=== PATIENT | female | born 1955 | race Caucasian/White ===

== ENCOUNTER 2018-09-26 15:50 | Inpatient (IN) ==
[2018-09-26] MEDS ORDERED: ONDANSETRON 4 MG/2 ML VIAL IV STA (20:56)
[2018-09-26] MEDS ORDERED: SODIUM CHLORIDE 0.9% 1,000 ML IV STA (20:56)
[2018-09-26] MEDS ORDERED: MORPHINE 4 MG/1 ML VIAL IV STA (20:56)
[2018-09-26] MEDS ORDERED: CEFTAROLINE 600 MG in SODIUM CHLORIDE 0.9% 100 ML IV STA (20:56)
[2018-09-26 21:15] LABS: Basophils # 0.1 10*3/uL (0.0-0.2); Basophils % 0.3 % (0.0-0.8); Eosinophils # 0.2 10*3/uL (0.0-0.87); Eosinophils % 0.9 % (0.00-10.9); Hematocrit 34.5 VOL% (35.7-47.0); Hemoglobin 10.7 GM/DL (12.0-16.0); Immature Granulocytes % 2.8 %; Immature Granulocytes Absolute 0.59 #; Lymphocytes # 2.4 10*3/uL (1.4-4.0); Lymphocytes % 11.4 % (21.3-54.2); Mean Corpuscular Hemoglobin 29 PG (27-34); Mean Corpuscular Volume 92.5 FL (87-102); Mean Platelet Volume 9.7 FL (9.6-12.0); Monocytes # 1.6 10*3/uL (0.11-0.8); Monocytes % 7.6 % (1.7-12.7); Neutrophils # 16.1 10*3/uL (1.4-7.4); Platelet Count 443 T/CUMM (130-400); Red Blood Count 3.73 MC/CUMM (3.8-5.5); Red Cell Distribution Width 13.2 % (9.3-17.3); White Blood Count 20.9 T/CUMM (4-12)
[2018-09-26 21:20] LABS: Apearance,Urine CLEAR (Clear); Bilirubin,Urine Negative (Negative); Blood Urea Nitrogen 16 MG/DL (7-18); Blood, Urine Negative (Negative); Calcium 8.6 MG/DL (8.5-10.1); Glucose 100 MG/DL (74-106); Glucose,Urine (UA) Negative (Negative); Ketones,Urine Negative (Negative); Mucus,Urine Occasional /LPF (Occasional); Nitrite,Urine Negative (Negative); Osmolality,Calculated 268.2 MOS/KG (273-304); Potassium 3.5 MMOL/L (3.5-5.1); Protein,Urine Negative; RBC,Urine <1 /HPF (0-4); Sodium 134 MMOL/L (136-145); Squamous Epithelial Cell,Urine Occasional /HPF (0-10); Urine Color Amber (Yellow); Urine Specific Gravity 1.021 (1.001-1.035); WBC,Urine 4 /HPF (0-6)
[2018-09-26 22:08] LABS: Band Neutrophils 4 % (0-10); Eosinophils 1 % (0-10); Lymphocytes 11 % (20-55); Platelet Estimate Increased; Segmented Neutrophils 80 % (50-85); Total Cells Counted 100
[2018-09-26] MEDS ORDERED: ACETAMINOPHEN 325 MG TABLET PO PRN (23:11)
[2018-09-26] MEDS ORDERED: PROMETHAZINE 25 MG/1 ML VIAL IM PRN (23:11)
[2018-09-26] MEDS ORDERED: ONDANSETRON 4 MG/2 ML VIAL IV PRN (23:11)
[2018-09-26] MEDS: HYDROmorphone 2 MG/1 ML VIAL IV PRN (23:47)
[2018-09-26 23:49] LABS: PT Patient Result 10.4 SECS; Partial Thromboplastin Time 25.8 SECS (0-40)
[2018-09-27] MEDS: SODIUM CHLORIDE 0.9% 1,000 ML IV SCH ×4 (00:18→19:24)
[2018-09-27] MEDS: PIPERACILLIN/TAZOBACTAM 3,375 MG in SODIUM CHLORIDE 0.9% 100 ML IV SCH ×4 (00:20→23:07)
[2018-09-27] MEDS: HYDROmorphone 2 MG/1 ML VIAL IV PRN ×6 (06:09→19:47)
[2018-09-27] MEDS: PANTOPRAZOLE 40 MG TABLET PO SCH (08:31)
[2018-09-27] MEDS ORDERED: GLUCAGON 1 MG VIAL IM PRN (08:32)
[2018-09-27] MEDS ORDERED: DEXTROSE 50% 25 GM/50 ML SYRINGE IV PRN (08:32)
[2018-09-27] MEDS ORDERED: DEXTROSE 50% 25 GM/50 ML VIAL IV ONE (10:56)
[2018-09-27] MEDS ORDERED: BUPIVACAINE 0.5% 50 ML VIAL ONE (11:02)
[2018-09-27] MEDS ORDERED: LIDOCAINE 1%/EPI INJ 20 ML VIAL ONE (11:02)
[2018-09-27] MEDS ORDERED: DEXTROSE 50% 25 GM/50 ML SYRINGE IV ONE (11:03)
[2018-09-27] MEDS ORDERED: HYDROmorphone 2 MG/1 ML VIAL ONE (12:04)
[2018-09-27] MEDS ORDERED: MEPERIDINE 25 MG/1 ML VIAL ONE (12:04)
[2018-09-27] MEDS ORDERED: ONDANSETRON 4 MG/2 ML VIAL ONE (12:04)
[2018-09-27] MEDS ORDERED: ONDANSETRON 4 MG/2 ML VIAL IV PRN (12:05)
[2018-09-27] MEDS ORDERED: PROMETHAZINE INJ 25 MG in SODIUM CHLORIDE 0.9% 50 ML IV PRN (12:05)
[2018-09-27] MEDS ORDERED: MEPERIDINE 25 MG/1 ML VIAL IV PRN (12:05)
[2018-09-27] MEDS ORDERED: MIDAZOLAM 2 MG/2 ML VIAL ONE (12:06)
[2018-09-27] MEDS ORDERED: fentaNYL 100 MCG/2 ML VIAL ONE (12:07)
[2018-09-27] MEDS ORDERED: PROPOFOL 200 MG/20 ML VIAL IV ONE (12:07)
[2018-09-27] MEDS ORDERED: KETAMINE 500 MG/10 ML VIAL ONE (12:08)
[2018-09-27] MEDS ORDERED: SODIUM CHLORIDE 0.9% 100 ML IV ONE (12:08)
[2018-09-27] MEDS: INSULIN LISPRO 100 UNIT/ML SUBCUT SCH ×3 (13:00→23:29)
[2018-09-27] MEDS: DULoxetine 30 MG CAPSULE PO SCH (20:50)
[2018-09-28] MEDS: SODIUM CHLORIDE 0.9% 1,000 ML IV SCH ×3 (02:14→14:26)
[2018-09-28 05:02] LABS: Basophils # 0.1 10*3/uL (0.0-0.2); Basophils % 0.3 % (0.0-0.8); Eosinophils # 0.3 10*3/uL (0.0-0.87); Eosinophils % 1.9 % (0.00-10.9); Hematocrit 27.9 VOL% (35.7-47.0); Hemoglobin 8.7 GM/DL (12.0-16.0); Immature Granulocytes % 5.6 %; Immature Granulocytes Absolute 0.92 #; Lymphocytes % 11.8 % (21.3-54.2); Mean Corpuscular HGB Conc 31.2 GM/DL (32-36); Mean Corpuscular Hemoglobin 29 PG (27-34); Mean Corpuscular Volume 92.4 FL (87-102); Mean Platelet Volume 9.4 FL (9.6-12.0); Monocytes # 1.3 10*3/uL (0.11-0.8); Monocytes % 7.8 % (1.7-12.7); Neutrophils % 72.6 % (38.7-73.9); Platelet Count 380 T/CUMM (130-400); Red Blood Count 3.02 MC/CUMM (3.8-5.5); Red Cell Distribution Width 13.2 % (9.3-17.3); White Blood Count 16.5 T/CUMM (4-12)
[2018-09-28 05:25] LABS: Band Neutrophils 6 % (0-10); Eosinophils 1 % (0-10); Lymphocytes 15 % (20-55); Myelocytes 1 %; Segmented Neutrophils 73 % (50-85); Total Cells Counted 100
[2018-09-28 05:26] LABS: Hypochromasia 1+; Platelet Estimate Adequate
[2018-09-28 05:36] LABS: Albumin 1.6 G/DL (3.4-5.0); Bilirubin,Total 1.6 MG/DL (0.2-1.0); Osmolality,Calculated 269.4 MOS/KG (273-304); Total Protein 5.8 G/DL (6.4-8.3)
[2018-09-28] MEDS: INSULIN LISPRO 100 UNIT/ML SUBCUT SCH ×4 (05:37→23:43)
[2018-09-28] MEDS: PIPERACILLIN/TAZOBACTAM 3,375 MG in SODIUM CHLORIDE 0.9% 100 ML IV SCH ×3 (06:03→22:43)
[2018-09-28] MEDS: PANTOPRAZOLE 40 MG TABLET PO SCH (08:32)
[2018-09-28] MEDS: HYDROmorphone 2 MG/1 ML VIAL IV PRN (11:05)
[2018-09-28] MEDS: SODIUM HYPOCHLORITE 0.25% IRRIG 473 ML BOTTLE TOP SCH (11:41)
[2018-09-28] MEDS: CHLORHEXIDINE 4% SOLN 118 ML BOTTLE TOP SCH (11:42)
[2018-09-28] MEDS ORDERED: HYDROmorphone 2 MG/1 ML VIAL IV PRN ×2 (12:31)
[2018-09-28] MEDS: DULoxetine 30 MG CAPSULE PO SCH (20:39)
[2018-09-29 05:14] LABS: Basophils % 0.3 % (0.0-0.8); Eosinophils # 0.3 10*3/uL (0.0-0.87); Eosinophils % 2.5 % (0.00-10.9); Hematocrit 30.1 VOL% (35.7-47.0); Hemoglobin 9.3 GM/DL (12.0-16.0); Lymphocytes # 2.4 10*3/uL (1.4-4.0); Lymphocytes % 24.2 % (21.3-54.2); Mean Corpuscular HGB Conc 30.9 GM/DL (32-36); Mean Corpuscular Hemoglobin 28 PG (27-34); Mean Platelet Volume 9.3 FL (9.6-12.0); Monocytes # 0.7 10*3/uL (0.11-0.8); Monocytes % 6.8 % (1.7-12.7); Neutrophils # 6.1 10*3/uL (1.4-7.4); Neutrophils % 61.2 % (38.7-73.9); Platelet Count 455 T/CUMM (130-400); Red Blood Count 3.27 MC/CUMM (3.8-5.5); Red Cell Distribution Width 13.1 % (9.3-17.3)
[2018-09-29 05:39] LABS: Albumin 1.7 G/DL (3.4-5.0); Bilirubin,Total 0.5 MG/DL (0.2-1.0); Calcium 8.6 MG/DL (8.5-10.1); Osmolality,Calculated 270.1 MOS/KG (273-304); Total Protein 6.5 G/DL (6.4-8.3)
[2018-09-29] MEDS: SODIUM CHLORIDE 0.9% 1,000 ML IV SCH (05:40)
[2018-09-29] MEDS: INSULIN LISPRO 100 UNIT/ML SUBCUT SCH ×4 (05:50→23:55)
[2018-09-29] MEDS ORDERED: FAMOTIDINE 20 MG TABLET PO ONE (06:00)
[2018-09-29] MEDS ORDERED: LIDOCAINE 1%/EPI INJ 20 ML VIAL ONE (06:37)
[2018-09-29] MEDS: PIPERACILLIN/TAZOBACTAM 3,375 MG in SODIUM CHLORIDE 0.9% 100 ML IV SCH (07:05)
[2018-09-29] MEDS ORDERED: PROPOFOL 200 MG/20 ML VIAL IV ONE (08:03)
[2018-09-29] MEDS ORDERED: fentaNYL 100 MCG/2 ML VIAL ONE (08:03)
[2018-09-29] MEDS ORDERED: SEVOFLURANE 1 UNIT/15 MINUTE INH ONE (08:03)
[2018-09-29] MEDS ORDERED: MIDAZOLAM 2 MG/2 ML VIAL ONE (08:03)
[2018-09-29] MEDS ORDERED: ONDANSETRON 4 MG/2 ML VIAL ONE (08:04)
[2018-09-29] MEDS ORDERED: PHENYLEPHRINE 1 MG/10 ML SYRINGE IV ONE (08:04)
[2018-09-29] MEDS ORDERED: DEXAMETHASONE 4 MG/1 ML VIAL ONE (08:04)
[2018-09-29] MEDS ORDERED: KETOROLAC 30 MG/1 ML VIAL ONE (08:04)
[2018-09-29] MEDS: SODIUM HYPOCHLORITE 0.25% IRRIG 473 ML BOTTLE TOP SCH (08:20)
[2018-09-29] MEDS: CHLORHEXIDINE 4% SOLN 118 ML BOTTLE TOP SCH (08:21)
[2018-09-29] MEDS: PANTOPRAZOLE 40 MG TABLET PO SCH (08:39)
[2018-09-29] MEDS: NAFCILLIN 2,000 MG in SODIUM CHLORIDE 0.9% 100 ML IV SCH ×2 (15:09→20:12)
[2018-09-29] MEDS: DULoxetine 30 MG CAPSULE PO SCH (20:11)
[2018-09-30] MEDS: NAFCILLIN 2,000 MG in SODIUM CHLORIDE 0.9% 100 ML IV SCH ×4 (02:55→21:16)
[2018-09-30] MEDS: SODIUM CHLORIDE 0.9% 1,000 ML IV SCH ×2 (02:57→05:55)
[2018-09-30] MEDS: INSULIN LISPRO 100 UNIT/ML SUBCUT SCH ×4 (05:54→23:46)
[2018-09-30] MEDS: KETOROLAC 10 MG TABLET PO PRN (06:01)
[2018-09-30] MEDS: PANTOPRAZOLE 40 MG TABLET PO SCH (10:12)
[2018-09-30] MEDS: CHLORHEXIDINE 4% SOLN 118 ML BOTTLE TOP SCH (14:50)
[2018-09-30] MEDS: SODIUM HYPOCHLORITE 0.25% IRRIG 473 ML BOTTLE TOP SCH (14:50)
[2018-09-30] MEDS ORDERED: amLODIPine 10 MG TABLET PO ONE (21:05)
[2018-09-30] MEDS ORDERED: METOPROLOL TARTRATE 50 MG TABLET PO ONE (21:07)
[2018-09-30] MEDS: DULoxetine 30 MG CAPSULE PO SCH (21:17)
[2018-10-01] MEDS: NAFCILLIN 2,000 MG in SODIUM CHLORIDE 0.9% 100 ML IV SCH ×4 (03:48→20:50)
[2018-10-01] MEDS: INSULIN LISPRO 100 UNIT/ML SUBCUT SCH ×3 (06:28→18:35)
[2018-10-01] MEDS: METOPROLOL TARTRATE 100 MG TABLET PO SCH (09:41)
[2018-10-01] MEDS: amLODIPine 10 MG TABLET PO SCH (09:42)
[2018-10-01] MEDS: PANTOPRAZOLE 40 MG TABLET PO SCH (09:42)
[2018-10-01] MEDS: CHLORHEXIDINE 4% SOLN 118 ML BOTTLE TOP SCH (11:10)
[2018-10-01] MEDS: SODIUM HYPOCHLORITE 0.25% IRRIG 473 ML BOTTLE TOP SCH (11:10)
[2018-10-01] MEDS: DULoxetine 30 MG CAPSULE PO SCH (20:50)
[2018-10-02] MEDS: INSULIN LISPRO 100 UNIT/ML SUBCUT SCH ×6 (00:12→23:50)
[2018-10-02] MEDS: NAFCILLIN 2,000 MG in SODIUM CHLORIDE 0.9% 100 ML IV SCH ×5 (03:20→21:20)
[2018-10-02] MEDS: CHLORHEXIDINE 4% SOLN 118 ML BOTTLE TOP SCH (07:45)
[2018-10-02] MEDS: SODIUM HYPOCHLORITE 0.25% IRRIG 473 ML BOTTLE TOP SCH (07:45)
[2018-10-02] MEDS: PANTOPRAZOLE 40 MG TABLET PO SCH (09:44)
[2018-10-02] MEDS: amLODIPine 10 MG TABLET PO SCH (09:44)
[2018-10-02] MEDS: METOPROLOL TARTRATE 100 MG TABLET PO SCH (09:44)
[2018-10-02] MEDS: KETOROLAC 10 MG TABLET PO PRN (13:01)
[2018-10-02] MEDS: DULoxetine 30 MG CAPSULE PO SCH (21:17)
[2018-10-03] MEDS: NAFCILLIN 2,000 MG in SODIUM CHLORIDE 0.9% 100 ML IV SCH ×2 (02:14→08:53)
[2018-10-03] MEDS: INSULIN LISPRO 100 UNIT/ML SUBCUT SCH ×2 (07:26→12:26)
[2018-10-03] MEDS: PANTOPRAZOLE 40 MG TABLET PO SCH (08:54)
[2018-10-03] MEDS: amLODIPine 10 MG TABLET PO SCH (08:54)
[2018-10-03] MEDS: METOPROLOL TARTRATE 100 MG TABLET PO SCH (08:54)
[2018-10-03] MEDS: CHLORHEXIDINE 4% SOLN 118 ML BOTTLE TOP SCH (08:54)
[2018-10-03] MEDS: SODIUM HYPOCHLORITE 0.25% IRRIG 473 ML BOTTLE TOP SCH (08:54)
[2018-10-03 12:21] VITALS: BP 147/74
== END 2018-10-03 13:23 | disposition home health service (06) | DRG 854 ==
LOC: N.ED 15:50 → N.EDINP 21:51 → N.3E 23:08
PROVIDERS: ADMIT Surgery; ATTEND Surgery

== ENCOUNTER 2020-05-17 12:39 | Inpatient (IN) ==
[2020-05-17 14:34] LABS: Basophils # 0.1 10*3/uL (0.0-0.2); Basophils % 0.8 % (0.0-0.8); Eosinophils # 0.1 10*3/uL (0.0-0.87); Eosinophils % 1.4 % (0.00-10.9); Hematocrit 37.3 VOL% (35.7-47.0); Hemoglobin 12.7 GM/DL (12.0-16.0); Immature Granulocytes % 0.4 %; Immature Granulocytes Absolute 0.03 #; Lymphocytes % 12.8 % (21.3-54.2); Mean Platelet Volume 10.1 FL (9.6-12.0); Monocytes % 6.9 % (1.7-12.7); Neutrophils % 77.7 % (38.7-73.9); Platelet Count 309 T/CUMM (130-400); Red Blood Count 4.24 MC/CUMM (3.8-5.5); Red Cell Distribution Width 12.7 % (9.3-17.3)
[2020-05-17 14:47] LABS: Albumin 3.7 G/DL (3.4-5.0); Bilirubin,Total 0.6 MG/DL (0.2-1.0); Calcium 9.5 MG/DL (8.5-10.1); Osmolality,Calculated 280.8 MOS/KG (273-304); Total Protein 7.9 G/DL (6.4-8.3)
[2020-05-17] MEDS ORDERED: DEXTROSE 50% 25 GM/50 ML VIAL IV PRN ×2 (15:13)
[2020-05-17] MEDS ORDERED: ONDANSETRON 4 MG/2 ML VIAL IV PRN (15:13)
[2020-05-17] MEDS ORDERED: MORPHINE 4 MG/1 ML VIAL IV PRN ×3 (15:13→17:21)
[2020-05-17] MEDS ORDERED: diphenhydrAMINE CAP 25 MG CAPSULE PO PRN (15:13)
[2020-05-17] MEDS ORDERED: GLUCAGON 1 MG VIAL IM PRN ×2 (15:13)
[2020-05-17] MEDS ORDERED: traZODone 50 MG TABLET PO PRN (15:13)
[2020-05-17] MEDS ORDERED: DOCUSATE SODIUM 100 MG CAPSULE PO PRN (15:13)
[2020-05-17] MEDS ORDERED: SIMETHICONE CHEW 125 MG TABLET PO PRN (15:13)
[2020-05-17 15:14] LABS: Bilirubin,Urine Negative (Negative); Blood, Urine Negative (Negative); Glucose,Urine (UA) Negative (Negative); Ketones,Urine Negative (Negative); Nitrite,Urine Negative (Negative); Protein,Urine Negative; RBC,Urine <1 /HPF (0-4); Squamous Epithelial Cell,Urine Occasional /HPF (0-10); Urine Appearance CLEAR (Clear); Urine Color Yellow (Yellow); Urine Specific Gravity 1.013 (1.001-1.035); WBC,Urine 1 /HPF (0-6)
[2020-05-17] MEDS ORDERED: ENOXAPARIN 40 MG/0.4 ML SYRINGE SUBCUT SCH (16:00)
[2020-05-17] MEDS ORDERED: INSULIN LISPRO 100 UNIT/ML SUBCUT SCH (16:30)
[2020-05-17] MEDS ORDERED: INFLUENZA VIRUS VACCINE 0.5 ML SYRINGE IM ONE (17:21)
[2020-05-17] MEDS: INSULIN LISPRO 100 UNIT/ML SUBCUT SCH ×2 (17:46→20:43)
[2020-05-17] MEDS: POTASSIUM CHLORIDE 20 MEQ TABLET PO PRN ×2 (20:13→22:17)
[2020-05-18] MEDS: POTASSIUM CHLORIDE 20 MEQ TABLET PO PRN ×5 (00:06→19:26)
[2020-05-18] MEDS: POTASSIUM CHLORIDE INJ 20 MEQ in LACTATED RINGERS 1,000 ML IV SCH ×2 (00:06→14:40)
[2020-05-18 06:19] LABS: Osmolality,Calculated 282.8 MOS/KG (273-304); Thyroid Stimulating Hormone 3.98 uIU/ml (0.358-3.74)
[2020-05-18] MEDS ORDERED: ceFAZolin 2,000 MG in PREMIX 1 EACH IV ONE (06:30)
[2020-05-18] MEDS: POTASSIUM CHLORIDE RIDER 10 MEQ in PREMIX 1 EACH IV PRN ×2 (06:41→10:20)
[2020-05-18] MEDS: INSULIN LISPRO 100 UNIT/ML SUBCUT SCH ×4 (07:59→21:02)
[2020-05-18 09:12] LABS: Basophils # 0.1 10*3/uL (0.0-0.2); Basophils % 0.6 % (0.0-0.8); Eosinophils # 0.2 10*3/uL (0.0-0.87); Eosinophils % 2.7 % (0.00-10.9); Hematocrit 33.9 VOL% (35.7-47.0); Hemoglobin 11.3 GM/DL (12.0-16.0); Immature Granulocytes % 0.6 %; Immature Granulocytes Absolute 0.05 #; Lymphocytes # 2.9 10*3/uL (1.4-4.0); Lymphocytes % 32.5 % (21.3-54.2); Mean Corpuscular HGB Conc 33.3 GM/DL (32-36); Mean Corpuscular Volume 90.9 FL (87-102); Neutrophils % 53.6 % (38.7-73.9); Platelet Count 323 T/CUMM (130-400); Red Blood Count 3.73 MC/CUMM (3.8-5.5); Red Cell Distribution Width 12.9 % (9.3-17.3); White Blood Count 8.8 T/CUMM (4-12)
[2020-05-18] MEDS ORDERED: BACITRACIN OINT 0.9 GM PACK TOP ONE (12:26)
[2020-05-18] MEDS ORDERED: MAGNESIUM HYDROXIDE SUSP 30 ML UDCUP PO PRN (13:18)
[2020-05-18] MEDS ORDERED: propofoL 200 MG/20 ML VIAL IV ONE (13:30)
[2020-05-18] MEDS ORDERED: LIDOCAINE 2% 5 ML VIAL ONE (13:30)
[2020-05-18] MEDS ORDERED: MIDAZOLAM 2 MG/2 ML VIAL ONE (13:30)
[2020-05-18] MEDS ORDERED: fentaNYL 100 MCG/2 ML VIAL ONE (13:30)
[2020-05-18] MEDS ORDERED: SEVOFLURANE 1 UNIT/15 MINUTE INH ONE (13:30)
[2020-05-18] MEDS ORDERED: DEXAMETHASONE 4 MG/1 ML VIAL ONE (13:31)
[2020-05-18] MEDS ORDERED: ONDANSETRON 4 MG/2 ML VIAL ONE (13:31)
[2020-05-18] MEDS ORDERED: ACETAMINOPHEN 1,000 MG/100 ML VIAL IV ONE (13:31)
[2020-05-18] MEDS ORDERED: KETOROLAC 30 MG/1 ML VIAL ONE (13:31)
[2020-05-18] MEDS ORDERED: ONDANSETRON 4 MG/2 ML VIAL IV PRN (13:50)
[2020-05-18] MEDS: HYDROmorphone 2 MG/1 ML VIAL IV PRN ×2 (13:55→14:06)
[2020-05-18] MEDS: ceFAZolin 2,000 MG in PREMIX 1 EACH IV SCH (20:42)
[2020-05-19] MEDS ORDERED: FAMOTIDINE 20 MG TABLET PO SCH
[2020-05-19] MEDS: ceFAZolin 2,000 MG in PREMIX 1 EACH IV SCH (03:02)
[2020-05-19 06:29] LABS: Basophils % 0.1 % (0.0-0.8); Hematocrit 33.7 VOL% (35.7-47.0); Hemoglobin 11.2 GM/DL (12.0-16.0); Immature Granulocytes % 0.5 %; Immature Granulocytes Absolute 0.04 #; Lymphocytes # 0.8 10*3/uL (1.4-4.0); Lymphocytes % 9.3 % (21.3-54.2); Mean Corpuscular HGB Conc 33.2 GM/DL (32-36); Mean Corpuscular Volume 90.3 FL (87-102); Mean Platelet Volume 11.6 FL (9.6-12.0); Monocytes % 4.6 % (1.7-12.7); Neutrophils % 85.5 % (38.7-73.9); Platelet Count 180 T/CUMM (130-400); Red Blood Count 3.73 MC/CUMM (3.8-5.5); White Blood Count 8.5 T/CUMM (4-12)
[2020-05-19 06:53] LABS: Calcium 8.4 MG/DL (8.5-10.1); Osmolality,Calculated 272.2 MOS/KG (273-304)
[2020-05-19] MEDS: INSULIN LISPRO 100 UNIT/ML SUBCUT SCH ×2 (07:57→12:44)
[2020-05-19 11:50] VITALS: BP 101/60
== END 2020-05-19 14:24 | disposition home health service (06) | DRG 512 ==
LOC: EDBD → EDUNIT# → N.ED 12:39 → N.EDINP 15:15 → N.3E 16:22
PROVIDERS: ADMIT Internal Medicine; ATTEND Internal Medicine